=== PATIENT | female | born 1960 | race Caucasian/White ===

== ENCOUNTER 2021-12-26 14:56 | Outpatient (CLI) | payer BC, SELFPAY ==
[2021-12-26 09:31] LABS: Chloride* 99 mmol/L (96-114); Potassium* 4.1 mmol/L (3.6-5.1); Sodium* 136 mmol/L (135-149)
[2021-12-26 09:34] LABS: Blood Urea Nitrogen* 21 mg/dL (7-30); Carbon Dioxide* 28 mmol/L (20-32); Cholesterol* 228 mg/dL (90-199); Creatinine* 0.7 mg/dL (0.5-1.5); Estimated Glomerular Filt Rate 98 ml/min
[2021-12-26 09:35] LABS: Calcium* 9.5 mg/dL (8.4-10.6); Glucose* 98 mg/dL (60-115); HDL Cholesterol* 62 mg/dL (>=50); LDL Cholesterol Calculated 139 mg/dL (<100); Triglycerides* 137 mg/dL (40-149)
== END 2021-12-26 14:57 | disposition home or self-care (01) ==
PROVIDERS: PCP Internal Medicine; Visit Provider Internal Medicine
DX: E03.9 Hypothyroidism, unspecified (principal); E78.5 Hyperlipidemia, unspecified; I10 Essential (primary) hypertension
CPT/HCPCS: 80048; 80061; 84443

== ENCOUNTER 2022-10-31 14:46 | Outpatient (CLI) | payer BC, SELFPAY ==
--- NOTE | 2022-10-31 15:00 | CRLHL7_ITS ---
For Patients: As a result of the Cures Act, medical imaging exams and procedure reports are released immediately into your electronic medical record. You may view this report before your referring provider. If you have questions, please contact your health care provider. BILATERAL SCREENING MAMMOGRAM WITH COMPUTER-AIDED DETECTION AND TOMOSYNTHESIS TECHNIQUE: CC and MLO views were obtained. These mammographic images have been obtained using full-field digital technique. These mammographic images were interpreted with the benefit of computer-aided detection. Breast tomosynthesis was used in this interpretation. COMPARISON FILM: 08/31/21, 07/04/20, 05/25/19. FINDINGS: There are scattered areas of fibroglandular density. IMPRESSION: There is no radiographic evidence for malignancy. ASSESSMENT: BI-RADS Category 2: Benign RECOMMENDATION: Routine screening mammogram in 1 year. A lay language report of this examination will be provided to the patient. ADEBAYO CARREON M.D. Diagnostic Radiologist [email or web address] VERNA/ai Transcribed: 11/01/2022, 3:[address]/Dictated by: Adebayo Carreon MD @ 11/01/2022 9:12:00 AM (Electronically Signed)
== END 2022-10-31 14:47 | disposition home or self-care (01) ==
LOC: MAMMO 14:47
PROVIDERS: PCP Internal Medicine; Visit Provider Internal Medicine
DX: Z12.31 Encounter for screening mammogram for malignant neoplasm of breast (principal)
CPT/HCPCS: 77063; 77067

== ENCOUNTER 2023-01-23 07:31 | Outpatient (CLI) | payer BC, SELFPAY | END 2023-01-23 07:32 | disposition home or self-care (01) | LOC: NFLDREF 01-24 11:08 | PROVIDERS: PCP Internal Medicine; Referring Provider Internal Medicine; Visit Provider Internal Medicine | DX: I10 Essential (primary) hypertension (principal); E78.5 Hyperlipidemia, unspecified; E03.9 Hypothyroidism, unspecified | CPT/HCPCS: 80048; 80061; 84443 ==

== ENCOUNTER 2023-12-24 08:57 | Outpatient (CLI) | payer BC, SELFPAY ==
--- OUTSIDE RECORDS SUMMARY | 2023-12-24 09:00 | XMS_ITS | Clinical Summary ---
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 0 08/14/2009 Active chlorthalidone (HYGROTON) 25 mg tabletIndications:HT N (hypertension) Take 1 tablet by mouth every morning. New medication today. 30 tablet 12 03/13/2011 Active desogestrel-ethinyl estradiol, 0.15-30 mg-mcg, (RECLIPSEN, 28,) tabletIndications:Ro juan general medical examination at a health care facility Take 1 tablet by mouth once daily. 3 Package 1 09/16/2011 Active levothyroxine (SYNTHROID) 100 mcg tabletIndications:Un specified hypothyroidism Take 1 tablet by mouth once daily. 30 tablet 1 10/03/2011 Active HYDROcodone-acetamin ophen, 5-325 mg, (NORCO) per tabletIndications:Ma lignant melanoma of skin of trunk, except scrotum (HC) Take 1-2 tablets by mouth every 4 hours if needed for Pain. Max acetaminophen dose: 4000mg in 24 hrs. 20 tablet 0 09/19/2014 Active Active Problems Problem Noted Date Diagnosed Date Malignant melanoma of skin of trunk, except scro areli 09/19/2014 Screen for colon cancer 05/03/2011 Overview: Colonoscopy 04/2011 normal repeat in 10 years Unspecified essential hypertension 04/03/2011 Sciatica 08/14/2009 Obesity, unspecified 07/02/2007 Unspecified hypothyroidism 07/02/2007 Routine general medical exam ination at a health care facility 07/02/2007 Immunizations Name Administration Dates Next Due AMB Influenza, IIV3 (Age >=3 years)(Flu Clinic Only) 02/13/2010 Influenza A (H1N1), Inactiva cristobal (Age >=3 Years) 04/20/2009 Influenza, IIV3 (Age >=3 years) 01/15/20 11,02/19/2009,02/12/2008, 007 Td (Age >=7 Years) 06/14/1998 Tdap 08/06/2007, 8(Deferred: Contraindication - pt. left) Family History Medical History Relation Name Comments Cancer Father Rufus PANCREATIC Heart Disease Father Rufus Cancer-breast Maternal Aunt 2 aunts, 42 a nd 40's Diabetes Mother Silvia Dx' @ 72yo Cancer-breast Other 1 COUSIN x 2 mat ernal Cancer-breast Other 2 Nilda Cousin x 2 Hyperlipidemia Sister 1 Kenna Hypertension Sister 1 Kenan Anesthesia Problem No Family History Blood Disease No Family History Relation Name Status Comments Brother Bird Alive Father Rufus (Age 70) Maternal Aunt Mother Silvia Alive Other 1 Other 2 Nilda Sister 1 Kenna Alive Sister 2 Rima Alive Social History Tobacco Use Types Packs/Day Years Used Date Smoking Tobacco: Never Smokeless Tobacco: Never Alcohol Use Standard Drinks/Week Comments Yes 0 (1 standard drink = 0.6 oz pur e alcohol) Red Wine a glass 2-3 x/week Sex and Gender Information Value Date Recorded Sex Assigned at Not on file Gender Identity Not on file Sexual Orientation Not on file Obstetrics History Para Term AB IAB SAB Ectopic Multiple Livin g Live Births 1 1 1 Date Outcome GA Total Labor Labor/2nd/3rd Weight Sex Type Anes PTL Lili A1 A5 Name Clin Para Last Filed Vital Signs Vital Sign Reading Time Taken Comments Blood Pressure 145/100 09/19/2014 9:13 AM CDT Pulse 82 09/19/2014 9:13 AM CDT Temperature 36.8 ??C (98.2 ??F) 09/19/2014 8:01 AM CD T Respiratory Rate 16 09/19/2014 8:01 AM CDT Oxygen Saturation 100% 05/03/2011 8:25 AM 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 Concentration - - Weight 115.9 kg (255 lb 9.6 oz) 06/23/2013 2:07 PM 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 Height 163.2 cm (5' 4.25) 09/13/2010 2:51 PM CD T Body Mass Index 43.53 09/13/2010 2:51 PM CDT Plan of Treatment Health Maintenance Due Date Last Done Comments Depression screening for age 12+ 1971 HIV for age 15-65 09/30/1974 BMI (ht and wt on same day) for age 18+ 09/30/1977 Hepatitis C screening for age 18-79 09/30/1977 Zoster (shingles) series for age 50+ (1 of 2) 09/30/2009 Lipids for age 45-75 08/22/2014 08/22/2009, 08/06/2007, 06/05/2006 Mammogram for age 45-75 12/07/2014 12/08/19 14, 11/02/2012, 10/18/2011, Additional history exists Tetanus booster 08/05/2017 08/06/2007, 06/14/1998 Colonoscopy through age 75 05/03/2021 05/03/2011, Pap test for age 21-65 10/13/2021 9, 10/13/2018, 02/20/2016, Additional history exists COVID-19 vaccine series (2022- season) 2023 Influenza for age 50-64 12/21/2023 01/15/20 11, 02/13/2010, 04/20/2009, Additional history exists Tdap Completed 08/06/2007 Pneumococcal series for age 6-64 Aged Out No longer eligible based on patient's age to complete this topic Procedures Procedure Name Priority Date/Time Associated Diagnosis Comments STITCH WELDER THIN PREP PAP SCREEN IMAGED Routine 10/13/2018 5:30 PM CDT SCAN-MAMMOGRAPHY REPORT 12/07/2013 12:00 AM CDT LIPID PANEL W REFLEX MEASURED LDL Routine 08/22/2009 7:26 AM CDT Lipid screening from Last 3 Months or Most Recently Relevant to Health Maintenance Results * STITCH WELDER THIN PREP PAP SCREEN IMAGED (10/13/2018 5:30 PM CDT) Case Report Gynecologic Cytology Report ? Case: [id number] ? Authorizing Provider: ??Unknown, Doctor ?Collected: ? 10/13/2018 1730 ? Ordering Location: ? [facility] ?Received: ?10/14/2018 1611 ? First Screen: ?Robert Randle ? Specimen: ?STITCH WELDER ThinPrep Vial Screening, Cervical/Vaginal ? 10/27/2018 9:36 AM CDT [facility] INTERPRETATION/ RESULT NEGATIVE FOR INTRAEPITHELIAL LESION OR MALIGNANCY (NIL) (none) 10/27/2018 9:36 AM CDT [facility] IMEN ADEQUACY Satisfactory for evaluation Endocervical component present 10/27/2018 9:36 AM CDT [facility] HPV REQUEST HPV and PAP 10/27/2018 9:36 AM CDT [facility] Last Pap Date 02/20/2016 10/27/2018 9:36 AM CDT [facility] [employer] Last Pap Result NIL 9 9:36 AM CDT [facility] Automated Review Successful 10/27/2018 9:36 AM CDT [facility] Comment:Specimen processed s uccessfully by automated composite assembler device, ThinPrep Imaging System, [employer] ANCILLARY TESTING STITCH WELDER HPV Ordered, Please see separate report 10/27/2018 9:36 AM CDT [facility] Note The pap test is a screening technique, not a diagnostic procedure. ??It is used primarily to screen for squamous cancers and precursor lesions. ??Published studies have shown that it is subject to both false negative and false positive results. ??The pap test should not be used as the sole means to diagnose or exclude pre-malignant and malignant lesions. Cytology is screened and interpreted at [facility] - [address], [place] [address] and [facility] - [address]; [place] [address] and [facility] - [address]; [place] [address] and [facility] [address]; [place] [address] 10/27/2018 9:36 AM CDT [facility] Other (Cervical/Vagina l) 10/13/2018 5:30 PM CDT 10/14/2018 4:11 PM CDT Doctor Unknown PATHOLOGY/CYTOLOGY [facility] [address] [place] [address], * SCAN-MAMMOGRAPHY REPORT (12/07/2013 12:00 AM CDT) Anatomical Region Laterality Modality Other Narrative 12/09/2013 9:51 AM CDT Procedure Note Scanner - 12/07/2013 12:00 AM CDT Scanner OTHER * (ABNORMAL) LIPID PANEL W REFLEX MEASURED LDL (08/22/2009 7:26 AM CDT) CHOLESTEROL,TOTAL 196 110 - 199 mg/dL [facility] TRIGLYCERIDES 203(H) <150 mg/dL [facility] HDL CHOLESTEROL 68 >40 mg/dL [facility] CHOL/HDL RATIO 2.88 <4.51 [facility] LDL CHOLESTEROL 87 <131 mg/dL [facility] PATIENT STATUS Fasting [facility] Blood specimen (specimen) BLOOD SPECIMEN / Unknown 08/22/2009 7:26 AM CDT 08/22/2009 7:19 AM CDT Luisito Stephenson MD CHEMISTRY [facility] [address] [place] [address] from Last 3 Months or Most Recently Relevant to Health Maintenance Advance Directives * Full Code (Latest Code Status on File) Date Activated Date Inactivated Comments 09/19/2014 8:52 AM 09/19/2014 11:21 AM Care Teams Family And Consumer Science Professor Relationship Specialty Start Date End Date Pcp, No . PCP - General 05/20/13
--- NOTE | 2023-12-24 09:15 | CRLHL7_ITS ---
For Patients: As a result of the Century Cures Act, medical imaging exams and procedure reports are released immediately into your electronic medical record. You may view this report before your referring provider. If you have questions, please contact your health care provider. BILATERAL SCREENING MAMMOGRAM WITH COMPUTER-AIDED DETECTION AND TOMOSYNTHESIS TECHNIQUE: CC and MLO views were obtained. These mammographic images have been obtained using full-field digital technique. These mammographic images were interpreted with the benefit of computer-aided detection. Breast Tomosynthesis was used in this interpretation. COMPARISON FILM: 10/31/22, 08/31/21, 07/04/20. FINDINGS: The breasts are almost entirely fatty IMPRESSION: There is no radiographic evidence for malignancy. ASSESSMENT: BI-RADS Category 2: Benign RECOMMENDATION: Routine screening mammogram in 1 year. A lay language report of this examination will be provided to the patient. Adebayo Beach M.D. Diagnostic Radiologist [email or web address] SHARI/Dictated by: Adebayo Beach MD @ 12/24/2023 11:14:00 AM (Electronically Signed)
== END 2023-12-24 08:58 | disposition home or self-care (01) ==
LOC: MAMMO 08:58
PROVIDERS: PCP Internal Medicine; Visit Provider Internal Medicine
DX: Z12.31 Encounter for screening mammogram for malignant neoplasm of breast (principal)
CPT/HCPCS: 77063; 77067

== ENCOUNTER 2024-04-27 08:15 | Outpatient (CLI) | payer BC, SELFPAY | END 2024-04-27 08:16 | disposition home or self-care (01) | LOC: NFLDREF 04-28 01:36 | PROVIDERS: PCP Internal Medicine; Referring Provider Internal Medicine; Visit Provider Internal Medicine | DX: E78.5 Hyperlipidemia, unspecified (principal); I10 Essential (primary) hypertension; E03.9 Hypothyroidism, unspecified | CPT/HCPCS: 80053; 80061; 84443 ==

== ENCOUNTER 2024-05-04 08:06 | Outpatient (CLI) | payer BC, SELFPAY ==
[2024-05-09 05:09] LABS: HPV Source Cervical; HPV, High Risk by TMA Not Detected
== END 2024-05-04 08:07 | disposition home or self-care (01) ==
PROVIDERS: PCP Internal Medicine; Visit Provider Internal Medicine
DX: Z12.4 Encounter for screening for malignant neoplasm of cervix (principal)
CPT/HCPCS: 87624; 87625; 88141; 88142